=== PATIENT | female | born 1985 | race Caucasian/White ===

== ENCOUNTER → 2016-05-17 | Outpatient (CLI) | payer OTHER | END | disposition home or self-care (01) | LOC: LABWHC1 14:28 | PROVIDERS: ATTEND Obstetrics & Gynecology | DX: O20.9 Hemorrhage in early pregnancy, unspecified (principal); Z3A.00 Weeks of gestation of pregnancy not specified | CPT/HCPCS: 36415; 84702 ==

== ENCOUNTER → 2016-08-20 | Outpatient (CLI) | payer OTHER | END | disposition home or self-care (01) | LOC: LABWHC1 15:10 | PROVIDERS: ATTEND Obstetrics & Gynecology | DX: Z34.81 Encounter for supervision of other normal pregnancy, first trimester (principal); Z3A.00 Weeks of gestation of pregnancy not specified | CPT/HCPCS: 36415; 84702 ==

== ENCOUNTER → 2016-08-23 | Outpatient (CLI) | payer OTHER | END | disposition home or self-care (01) | LOC: LABWHC1 11:58 | PROVIDERS: ATTEND Obstetrics & Gynecology | DX: Z34.91 Encounter for supervision of normal pregnancy, unspecified, first trimester (principal) | CPT/HCPCS: 36415; 84702 ==

== ENCOUNTER → 2016-09-15 | Outpatient (CLI) | payer OTHER | END | disposition home or self-care (01) | LOC: LABWHC1 12:26 | PROVIDERS: ATTEND Obstetrics & Gynecology | DX: O03.9 Complete or unspecified spontaneous abortion without complication (principal) | CPT/HCPCS: 36415; 84702 ==

== ENCOUNTER → 2016-09-15 | Outpatient (CLI) | payer OTHER ==
[2016-09-15 13:15] LABS: Basophils % (A) 1 %; CH 30.5; CHCM 34.3; Eosinophils # (A) 0.2 k/uL (0-0.7); Eosinophils % (A) 3 %; HCT 40.9 % (34.0-46.0); HDW 2.59; Luc # (Auto) 0.09; Luc % (Auto) 2; Lymphocytes # (A) 1.9 k/uL (1.0-4.8); Lymphocytes % (A) 34 %; MCH 30.6 pg (25.0-35.0); MCHC 34.2 g/dL (31.0-37.0); MCV 89.3 fL (80.0-100.0); Mean Platelet Volume 6.6; Monocytes # (A) 0.2 k/uL (0-1.0); Monocytes % (A) 4 %; Neutrophils # (A) 3.1 k/uL (1.3-7.7); Neutrophils % (A) 57 %; RBC 4.58 m/uL (3.80-5.40); WBC 5.5 k/uL (3.8-10.6); WBC (Perox) 5.39
[2016-09-15 14:39] LABS: Bilirubin, Delta 0.4 mg/dL (0.0-0.2); Total Bilirubin 0.7 mg/dL (0.2-1.3); Total Protein 8.3 g/dL (6.3-8.2)
[2016-09-17 11:17] LABS: HCV Qualitative Result DETECTED (Not detected)
== END | disposition home or self-care (01) ==
LOC: LABWHC1 12:28
PROVIDERS: ATTEND Physician Assistant
DX: B18.2 Chronic viral hepatitis C (principal)
CPT/HCPCS: 36415; 80076; 84702; 85025; 87522; 87902

== ENCOUNTER 2017-08-11 06:00 | Inpatient (IN) | payer OTHER ==
[2017-08-11] MEDS ORDERED: OXYTOCIN 20 UNITS/1000 ML NS 1,000 ML IV SCH (07:30)
[2017-08-11] MEDS ORDERED: TERBUTALINE 1 MG/ML VIAL SQ PRN (07:30)
[2017-08-11] MEDS ORDERED: AMPICILLIN 2,000 MG in SODIUM CHLORIDE 0.9% 100 ML IVPB STA (07:30)
[2017-08-11] MEDS ORDERED: LIDOCAINE 1% (PF) 10 MG/ML (30 ML SDV) SQ PRN (07:30)
[2017-08-11] MEDS ORDERED: OXYTOCIN 10 UNIT/ML 1 ML VIAL IM PRN (07:30)
[2017-08-11] MEDS ORDERED: CARBOPROST TROMETHAMINE 250 MCG/ML 1 ML AMP IM PRN (07:30)
[2017-08-11] MEDS ORDERED: METHYLERGONOVINE 0.2 MG/ML 1 ML AMP IM PRN (07:30)
[2017-08-11 07:41] VITALS: BMI 35.3
[2017-08-11] MEDS: LACTATED RINGERS 1,000 ML IV SCH ×3 (08:04→21:01)
[2017-08-11 08:18] LABS: Basophils % (A) 0 %; Eosinophils # (A) 0.1 k/uL (0-0.7); Eosinophils % (A) 1 %; HCT 35.3 % (34.0-46.0); HGB 12.1 gm/dL (11.4-16.0); Lymphocytes # (A) 1.7 k/uL (1.0-4.8); Lymphocytes % (A) 22 %; MCH 30.2 pg (25.0-35.0); MCHC 34.3 g/dL (31.0-37.0); Mean Platelet Volume 7.2; Monocytes # (A) 0.4 k/uL (0-1.0); Monocytes % (A) 5 %; Neutrophils # (A) 5.5 k/uL (1.3-7.7); Neutrophils % (A) 71 %; Platelet Count 217 k/uL (150-450); RBC 4.02 m/uL (3.80-5.40); WBC 7.7 k/uL (3.8-10.6)
--- NOTE | 2017-08-11 09:32 | P.HPOB ---
History of Present Illness H&P Date: 08/11/17 Chief Complaint: Intrauterine at term: History of hepatitis C Dia is a 31-year-old at 39 weeks gestation who arrives for induction of labor. Her Precis course has been unremarkable although it is noted that she has a history of hepatitis C. She does see [facility] neurologist for this but has not taken medication for this in quite some time. When we did check her liver enzymes were normal we'll repeat the lab work today. Otherwise she is feeling well heart tones are in the 140s and reactiive. Past Medical History Additional Past Medical History / Comment(s): Hep C and a VSD History of Any Multi-Drug Resistant Organisms: None Reported Past Surgical History: Appendectomy, Tonsillectomy Past Anesthesia/Blood Transfusion Reactions: No Reported Reaction Past Psychological History: Depression Smoking Status: Former smoker Past Alcohol Use History: None Reported Past Drug Use History: None Reported Additional Drug Use History / Comment(s): history of drug use 10 years ago - Past Family History Mother Family Medical History: Asthma Medications and Allergies Home Medications Medication Instructions Recorded Confirmed Type Pnv 11/Iron Fum/Folic Acid/Om3 1 tab PO DAILY 08/11/17 08/11/17 History [Virt-Anjel Dha Softgel] Ranitidine HCl 150 mg PO HS 08/11/17 08/11/17 History Allergies Allergy/AdvReac Type Severity Reaction Status Date / Time latex Allergy Rash/Hives Verified 08/11/17 07:28 Exam Osteopathic Statement: *. No significant issues noted on an osteopathic structural exam other than those noted in the History and Physical/Consult. - Vital Signs Vital signs: Vital Signs Temp Pulse Resp BP Pulse Ox 08/11/17 07:27 97.5 F L 93 16 123/71 98 Intake and Output 08/10/17 08/11/17 08/11/17 22:59 06:59 14:59 Other: Weight 84.822 kg - OBG Physical Exam Breast: both: normal (no masses) Abdomen: bowel sounds normal, no diffuse tenderness, no bruit present, no guarding noted, no hepatomegaly, no splenomegaly, no mass Vulva: both: normal Vagina: normal moisture, no discharge Cervix: no lesion, no discharge Uterus: Dilated to 1 cm 70% effaced -3 station. Cervix is posterior. Artificial rupture membranes was performed and clear fluid is noted. Uterus: normal size, normal contour Adnexa: both: normal Anus/Rectum: normal perianal skin, no rectal mass, no hemorrhoids, heme negative Results Result Diagrams: 08/11/17 08:04 Assessment and Plan Assessment: Intrauterine at 39 weeks. History of hepatitis C Plan: Expect spontaneous vaginal delivery with expectation for epidural for analgesia.
[2017-08-11 09:48] LABS: ALT 28 U/L (9-52); AST 28 U/L (14-36)
[2017-08-11] MEDS: AMPICILLIN 1,000 MG in SODIUM CHLORIDE 0.9% 50 ML IVPB SCH ×3 (11:58→21:21)
[2017-08-11] MEDS ORDERED: BUPIVACAINE (PF) 0.25% 30 ML VIAL ONE (16:18)
[2017-08-11] MEDS ORDERED: fentaNYL (PF) 50 MCG/ML 5 ML AMP ONE (16:18)
[2017-08-11] MEDS ORDERED: SODIUM CHLORIDE 0.9% 100 ML BAG ONE (16:18)
[2017-08-11] MEDS ORDERED: BUPIVACAINE (PF) 0.25% 25 ML, fentaNYL (PF) 200 MCG in SODIUM CHLORIDE 0.9% 71 ML EPIDURAL ONE (20:18)
[2017-08-11] MEDS ORDERED: ZOLPIDEM 5 MG TAB PO PRN (20:19)
[2017-08-11] MEDS ORDERED: SIMETHICONE 80 MG CHEWABLE PO PRN (20:19)
[2017-08-11] MEDS ORDERED: WITCH HAZEL 1 EACH MED..PAD TOPICAL PRN (20:19)
[2017-08-11] MEDS ORDERED: BENZOCAINE/MENTHOL SPRAY 1 GM/SPRAY AEROSOL TOPICAL PRN (20:19)
[2017-08-11] MEDS ORDERED: LANOLIN CREAM 5 GM TUBE TOPICAL PRN (20:19)
[2017-08-11] MEDS ORDERED: ACETAMINOPHEN TAB 325 MG TAB PO PRN (20:19)
[2017-08-11] MEDS ORDERED: diphenhydrAMINE 25 MG CAP PO PRN (20:19)
[2017-08-11] MEDS ORDERED: HYDROCORTISONE 2.5% RECTAL CREAM 30 GM TUBE RECTAL PRN (20:19)
[2017-08-11] MEDS ORDERED: diphenhydrAMINE 50 MG/ML 1 ML VIAL IVP PRN ×2 (20:19)
[2017-08-11] MEDS ORDERED: diphenhydrAMINE 50 MG CAP PO PRN (20:19)
--- NOTE | 2017-08-11 20:21 | P.PROBDLV ---
Vaginal Delivery Note - . Vaginal Delivery Note: Patient progressed to complete and pushed with spontaneous vaginal delivery of a viable male over an intact perineum. Falling deliver the head nuchal cord 1 was noted and easily reduced. Anterior shoulder was then delivered gentle downward traction followed by upper traction to deliver the posterior shoulder and the remainder the baby. Baby's mouth nares were then bulb suctioned and baby was placed on mother's abdomen where the umbilical cord was clamped and cut in usual fashion. Placenta was then delivered intact and Pitocin was added to the IV. Nursery personnel was present to assume care. scores were 8 and 9 at one and 5 minutes respectively and weight was 8 lbs. 1 oz. Both mother and baby are stable following delivery.
[2017-08-12] MEDS: IBUPROFEN 600 MG TAB PO PRN ×3 (02:24→14:39)
[2017-08-12] MEDS: SENNOSIDES-DOCUSATE SODIUM 1 EACH TAB PO SCH ×2 (08:03→19:56)
--- NOTE | 2017-08-12 12:58 | P.PNOBGVD ---
Subjective - Subjective Principal diagnosis: day 1 Interval history: Doing very well and voicing no complaints. Patient reports: Reports appetite normal, Reports voiding normally, Reports pain well controlled, Reports ambulating normally : doing well Objective - Latest Vital Signs Latest vital signs: Vital Signs Temp Pulse Resp BP Pulse Ox 08/12/17 08:00 98.2 F 83 16 105/75 08/12/17 04:00 98.4 F 85 16 111/63 96 08/12/17 00:00 98.2 F 94 16 114/63 100 08/11/17 22:24 98.5 F 91 16 106/56 96 08/11/17 21:54 99.2 F 88 16 103/55 08/11/17 21:24 16 08/11/17 21:21 97.4 F L 99 18 115/58 98 08/11/17 21:08 98.9 F 93 18 100/68 98 08/11/17 20:54 97.9 F 94 18 102/64 98 08/11/17 20:38 99.2 F 18 121/60 97 08/11/17 20:24 99.2 F 116 H 18 141/88 Intake and Output 08/11/17 08/12/17 08/12/17 22:59 06:59 14:59 Intake Total 1200 1000 Output Total 400 Balance 800 1000 Intake: IV 1200 Intake, IV Titration 1000 Amount Oxytocin 20 Units/1000 ml 1000 Ns 1,000 ml @ 1 MILLIUNIT/MIN 3 mls/hr IV .Q24H SHANIQUE Rx#:[id number] Output: Urine 400 Straight 400 Other: Voiding Method Toilet # Voids 1 1 1 - Exam Lungs: bilateral: normal Chest: Normal S1, Normal S2 Extremities: Present: normal Abdomen: Present: normal appearance, soft Uterus: Present: normal, firm
[2017-08-12] MEDS: LACTATED RINGERS 1,000 ML IV SCH ×2 (13:52→15:35)
[2017-08-13 00:30] VITALS: TEMP 97.9
--- NOTE | 2017-08-13 10:55 | P.DS ---
Providers Date of admission: 08/11/17 07:11 Expected date of discharge: 08/13/17 Attending physician: Darvin Hemphill Primary care physician: Crystal Altman - Discharge Diagnosis(es) (1) Normal vaginal delivery Current Visit: Yes Status: Acute Hospital Course: Patient presented for induction of labor. She underwent normal vaginal delivery. Her course was uncomplicated. She denies nausea, vomiting , chest pain, shortness of breath or calf pain. She'll be discharged home day #2 in stable condition to follow-up with Dr. Hemphill in 6 weeks. Plan - Discharge Summary New Discharge Prescriptions: New Ibuprofen [Motrin] 600 mg PO Q6HR PRN #30 tab PRN Reason: Pain No Action Ranitidine HCl 150 mg PO HS Pnv 11/Iron Fum/Folic Acid/Om3 [Virt-Anjel Dha Softgel] 1 tab PO DAILY Discharge Medication List Pnv 11/Iron Fum/Folic Acid/Om3 [Virt-Anjel Dha Softgel] 1 tab PO DAILY 08/11/17 [ History] Ranitidine HCl 150 mg PO HS 08/11/17 [History] Ibuprofen [Motrin] 600 mg PO Q6HR PRN #30 tab 08/12/17 [Rx] Follow up Appointment(s)/Referral(s): Darvin Hemphill DO [Doctor of Osteopathic Medicine] - 6 Weeks Activity/Diet/Wound Care/Special Instructions: No heavy lifting, limit stairs and driving, and pelvic rest. If any high temperatures, heavy bleeding, or severe pain call my office Discharge Disposition: HOME SELF-CARE
[2017-08-13 11:08] VITALS: BP 121/71; PULSE 94; RESP 18
--- NOTE | 2017-08-30 19:58 | CDI ---
Documentation Clarification Form Date: 08/30/17 From: Rowena Castillo Admit Date: 08/11/2017 7:11:00 AM Patient Name: Dia Rice Visit Number: [id number] Discharge Date: 08/13/17 ATTENTION: The Clinical Documentation Specialists (CDI) and [facility] Coding Staff appreciate your assistance in clarifying documentation. Please respond to the clarification below the line at the bottom and electronically sign. The CDI & [facility] Coding staff will review the response and follow-up if needed. Please note: Queries are made part of the Legal Health Record. If you have any questions, please contact the author of this message via ITS. Dr. Darvin Hemphill Group B strep is documented in the EMR Patient history/risk factors: Pt is pregnent Treatment: patient was given Ampicillin IV Clinical significance of diagnostic testing and treatment cannot be assumed or coded without physician documentation of the significance, if any. Signs or symptoms of an underlying condition should be coded only if not definite diagnosis is determined. In your professional opinion, can you please clarify the underlying cause of the patients symptoms, if known? Group B strep positive Other, please specify Unable to determine gbs positive MTDD
== END 2017-08-13 12:52 | disposition home or self-care (01) | DRG 774 ==
LOC: 4FBP 07:11
PROVIDERS: ADMIT Obstetrics & Gynecology; ATTEND Obstetrics & Gynecology
PROC: 00HU33Z Insertion of Infusion Device into Spinal Canal, Percutaneous Approach (ICD-10-PCS; principal; 2017-08-11)
PROC: 10E0XZZ Delivery of Products of Conception, External Approach (ICD-10-PCS; 2017-08-11)
PROC: 3E0R3NZ Introduction of Analgesics, Hypnotics, Sedatives into Spinal Canal, Percutaneous Approach (ICD-10-PCS; 2017-08-11)
PROC: 10907ZC Drainage of Amniotic Fluid, Therapeutic from Products of Conception, Via Natural or Artificial Opening (ICD-10-PCS; 2017-08-11)
PROC: 3E033VJ Introduction of Other Hormone into Peripheral Vein, Percutaneous Approach (ICD-10-PCS; 2017-08-11)
DX: O98.419 Viral hepatitis complicating pregnancy, unspecified trimester (principal); B19.20 Unspecified viral hepatitis C without hepatic coma; O99.824 Streptococcus B carrier state complicating childbirth; O69.81X0 Labor and delivery complicated by cord around neck, without compression, not applicable or unspecified; Z3A.39 39 weeks gestation of pregnancy; Z90.49 Acquired absence of other specified parts of digestive tract; Z90.89 Acquired absence of other organs; Z87.891 Personal history of nicotine dependence; Z82.5 Family history of asthma and other chronic lower respiratory diseases; Z79.899 Other long term (current) drug therapy; Z37.0 Single live birth; Z86.59 Personal history of other mental and behavioral disorders; Z91.040 Latex allergy status
CPT/HCPCS: 84450; 84460; 85025; 88307

== ENCOUNTER → 2018-07-07 | Outpatient (CLI) | payer OTHER ==
--- NOTE | 2018-07-07 20:05 | MR ---
MR brain without contrast HISTORY: Migraine headache Multiplanar multisequence imaging through the brain There is no restricted diffusion. Brain signal is normal. There is no hemorrhage or hydrocephalus. Th ere are normal vascular flow voids. Mild inflammatory change present in the ethmoid air cells, maxill amita sinuses. The corpus callosum, pituitary, cervical medullary junction, cerebellopontine angles are normal. Orbits show symmetric appearance. IMPRESSION: Mild sinus disease.
== END ==
LOC: RADMRIMAIN 19:30
PROVIDERS: ATTEND Psychiatry & Neurology Neurology
DX: G43.109 Migraine with aura, not intractable, without status migrainosus (principal)
CPT/HCPCS: 70551

== ENCOUNTER 2019-12-12 17:06 | Emergency (ER) | payer OTHER ==
[2019-12-12] MEDS ORDERED: LIDOCAINE 1% INJ 10MG/ML (20 ML MDV) SQ ONE (17:41)
[2019-12-12] MEDS ORDERED: HYDROcodone/APAP 5-325MG 1 EACH TAB PO STA (17:41)
[2019-12-12] MEDS ORDERED: LIDOCAINE/EPINEPHR/TETRACAINE 5 ML BOTTLE TOPICAL STA (18:14)
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
--- NOTE | 2019-12-12 18:21 | XR ---
EXAMINATION TYPE: XR nasal bone DATE OF EXAM: 12/12/2019 COMPARISON: NONE HISTORY: Trauma TECHNIQUE: 3 views FINDINGS: There is fracture of the anterior tip of the nasal bone. There is 2 mm depression. There is normal aeration of the maxillary sinuses. There is no evidence of a blowout fracture. IMPRESSION: Anterior nasal bone fracture.
--- NOTE | 2019-12-12 18:47 | XR ---
EXAMINATION TYPE: XR wrist complete RT DATE OF EXAM: 12/12/2019 COMPARISON: 06/29/2010 HISTORY: Pain TECHNIQUE: 4 views FINDINGS: Carpal bones appear intact. I see no fracture nor dislocation. Metacarpals are intact. Ther e is slight widening of the scapholunate joint space. IMPRESSION: Slight widening of the scapholunate joint space could relate to some ligamentous tear and is unchanged compared to old exam. No acute bony abnormality.
--- NOTE | 2019-12-12 18:49 | XR ---
EXAMINATION TYPE: XR hand complete RT DATE OF EXAM: 12/12/2019 COMPARISON: NONE HISTORY: Pain TECHNIQUE: 3 views FINDINGS: Metacarpals are intact. I see no fracture nor dislocation. Joint spaces are normal. There a re no erosions. There is no subluxation. IMPRESSION: Negative exam. No evidence of inflammatory arthritis.
[2019-12-12] MEDS ORDERED: CEPHALEXIN 500MG STARTER PACK 4 CAP BTL PO STA (19:08)
[2019-12-12] MEDS ORDERED: AMOXIC-POT CLAV 875MG STARTER PACK 2 TAB BTL PO STA (19:18)
[2019-12-12 19:31] VITALS: BP 129/89; PULSE 80; RESP 16; TEMP 97.9
== END 2019-12-12 19:31 | disposition home or self-care (01) ==
LOC: EC 17:06
DX: S02.2XXA Fracture of nasal bones, initial encounter for closed fracture (principal); S01.21XA Laceration without foreign body of nose, initial encounter; Z79.899 Other long term (current) drug therapy; Z87.891 Personal history of nicotine dependence; Z91.040 Latex allergy status; Y04.0XXA Assault by unarmed brawl or fight, initial encounter
CPT/HCPCS: 70160; 73110; 73130; 99284; 12011; J2001

== ENCOUNTER 2022-04-24 02:29 | Inpatient (IN) | payer OTHER ==
[2022-04-24] MEDS ORDERED: LIDOCAINE 0.5% (PF) 5 MG/ML (50 ML SDV) SQ PRN (03:49)
[2022-04-24] MEDS ORDERED: TERBUTALINE 1 MG/ML VIAL SQ PRN (03:49)
[2022-04-24] MEDS ORDERED: AMPICILLIN 2,000 MG in SODIUM CHLORIDE 0.9% 100 ML IVPB STA (03:49)
[2022-04-24] MEDS ORDERED: LACTATED RINGERS 1,000 ML IV SCH (04:00)
[2022-04-24] MEDS ORDERED: OXYTOCIN 30 UNITS/500 ML NS 30 UNIT in SALINE 1 500ML.BAG IV SCH ×2 (04:00→06:30)
[2022-04-24 04:48] LABS: Basophils # (A) 0.1 k/uL (0-0.2); Basophils % (A) 0 %; Eosinophils # (A) 0.1 k/uL (0-0.7); Eosinophils % (A) 1 %; HCT 39.3 % (34.0-46.0); HGB 13.5 gm/dL (11.4-16.0); Lymphocytes # (A) 1.8 k/uL (1.0-4.8); Lymphocytes % (A) 16 %; MCH 29.3 pg (25.0-35.0); MCHC 34.4 g/dL (31.0-37.0); MCV 85.2 fL (80.0-100.0); Monocytes # (A) 0.4 k/uL (0-1.0); Monocytes % (A) 4 %; Neutrophils # (A) 8.8 k/uL (1.3-7.7); Neutrophils % (A) 77 %; Platelet Count 235 k/uL (150-450); RBC 4.61 m/uL (3.80-5.40); RDW 14.4 % (11.5-15.5); WBC 11.5 k/uL (3.8-10.6)
[2022-04-24 04:58] LABS: Appearance,Urine Clear (Clear); Bacteria,Urine Rare /hpf; Bilirubin,Urine Negative (Negative); Blood,Urine Negative (Negative); Color,Urine Yellow; Creatinine,Urine Random 86.6 mg/dL; Glucose,Urine (UA) Negative (Negative); Hyaline Casts,Urine 1 /lpf (0-2); Ketones,Urine 2+ (Negative); Leukocyte Esterase,Urine Small (Negative); Mucus,Urine Rare /hpf; Nitrite,Urine Negative (Negative); Protein,Urine Trace (Negative); Protein/Creatinine Ratio,Urine 0.115; RBC,Urine <1 /hpf (0-5); Specific Gravity,Urine 1.023 (1.001-1.035); Squamous Epithelial Cell,Urine 3 /hpf (0-4); Urobilinogen,Urine <2.0 mg/dL (<2.0); WBC,Urine 2 /hpf (0-5)
[2022-04-24 05:00] LABS: ALT 44 U/L (4-34); AST 83 U/L (14-36); African American GFR (CKD) >90 (>60 ml/min/1.73 sqM); Blood Urea Nitrogen 20 mg/dL (7-17); Glucose 93 mg/dL (74-99); LDH 541 U/L (313-618); Non-African American GFR(CKD) 86 (>60 ml/min/1.73 sqM); Uric Acid 5.6 mg/dL (3.7-7.4)
[2022-04-24 05:02] LABS: Amphetamine Screen,Urine Detected (NotDetected); Barbiturate Screen,Urine Not Detected (NotDetected); Benzodiazepines Screen,Urine Not Detected (NotDetected); Cocaine Screen,Urine Not Detected (NotDetected); Methadone Screen, Urine Not Detected (NotDetected); Opiate Screen,Urine Not Detected (NotDetected); Oxycodone Screen, Urine Not Detected (NotDetected); Phencyclidine Screen,Urine Not Detected (NotDetected); Tricyclic Antidepressant,Urine Not Detected (NotDetected); Urn Cannabinoid Scrn Detected (NotDetected)
[2022-04-24] MEDS ORDERED: SODIUM CHLORIDE 0.9% 100 ML BAG ONE (05:05)
[2022-04-24] MEDS ORDERED: BUPIVACAINE (PF) 0.25% 30 ML VIAL ONE (05:05)
[2022-04-24] MEDS ORDERED: fentaNYL (PF) 50 MCG/ML 5 ML AMP ONE (05:05)
--- NOTE | 2022-04-24 05:14 | P.HPOB ---
History of Present Illness H&P Date: 04/24/22 Chief Complaint: LAbor 36 year old presents at 39 weeks 3 days plan he of contractions. Her cervix was 1-2 cm dilated, 70% effaced, -2 stationand she changed to 2-1/2 cm dilated in triage. heart tones were 135 with moderate variability and reactive. She is levy every 2-4 minutes. Patient has had all of her care in [facility]. I do not have records from this though the patient states that the ultrasound was normal. patient herself has a history of a ventricular septal defect that resolved on its own. Review of Systems All systems: negative Constitutional: Denies chills, Denies fever Eyes: denies blurred vision, denies pain Ears, nose, mouth and throat: Denies headache, Denies sore throat Cardiovascular: Denies chest pain, Denies shortness of breath Respiratory: Denies cough Gastrointestinal: Denies abdominal pain, Denies diarrhea, Denies nausea, Denies vomiting Genitourinary: Denies dysuria, Denies hematuria Musculoskeletal: Denies myalgias Integumentary: Denies pruritus, Denies rash Neurological: Denies numbness, Denies weakness Psychiatric: Denies anxiety, Denies depression Endocrine: Denies fatigue, Denies weight change Past Medical History Additional Past Medical History / Comment(s): Hep C and a VSD closed by the time she was 13 years old, she still has a murmur.she states she's had 3 previous vaginal deliveries History of Any Multi-Drug Resistant Organisms: None Reported Past Surgical History: Tonsillectomy Past Anesthesia/Blood Transfusion Reactions: No Reported Reaction Past Psychological History: Depression Smoking Status: Current every day smoker Past Alcohol Use History: None Reported Past Drug Use History: Marijuana Additional Drug Use History / Comment(s): history of drug use 10 years ago - Past Family History Mother Family Medical History: Asthma Medications and Allergies Home Medications Medication Instructions Recorded Confirmed Type Pnv 11/Iron Fum/Folic Acid/Om3 1 tab PO DAILY 08/11/17 04/24/22 History [Virt-Anjel Dha Softgel] Allergies Allergy/AdvReac Type Severity Reaction Status Date / Time latex Allergy Rash/Hives Verified 08/11/17 07:28 Exam Osteopathic Statement: *. No significant issues noted on an osteopathic structural exam other than those noted in the History and Physical/Consult. Vital Signs Temp Pulse Resp BP Pulse Ox 04/24/22 04:01 97.1 F L 100 16 143/97 100 Intake and Output 04/23/22 04/23/22 04/24/22 14:59 22:59 06:59 Other: Weight 77.111 kg Heart: Regular rate and rhythm Lungs: Clear to auscultation bilaterally Abdomen: Soft, nontender Extremities: Negative Homans sign, there are spots where the patient has been picking at her skin over her arms and legs. Results Result Diagrams: 04/24/22 04:30 04/24/22 04:30 Abnormal Lab Results - Last 24 Hours (Table) 04/24/22 04/24/22 04/24/22 Range/Units 04:30 04:30 04:37 WBC 11.5 H (3.8-10.6) k/uL Neutrophils # 8.8 H (1.3-7.7) k/uL BUN 20 H (7-17) mg/dL AST 83 H (14-36) U/L ALT 44 H (4-34) U/L Urine Protein Trace H (Negative) Urine Ketones 2+ H (Negative) Ur Leukocyte Esterase Small H (Negative) Urine Bacteria Rare H (None) /hpf Urine Mucus Rare H (None) /hpf Ur Amphetamines Screen Detected H (NotDetected) U Methamphetamines Scrn Detected H (NotDetected) U Marijuana (THC) Screen Detected H (NotDetected) Assessment and Plan (1) 39 weeks gestation of Current Visit: Yes Status: Acute Code(s): Z3A.39 - 39 WEEKS GESTATION OF SNOMED Code(s): 68112329 (2) Limited care, antepartum Current Visit: Yes Status: Acute Code(s): O09.30 - SUPRVSN OF PREG W INSUFFICIENT ANTENAT CARE, UNSP TRIMESTER SNOMED Code(s): 509589202 (3) Normal labor Current Visit: Yes Status: Acute Code(s): O80 - ENCOUNTER FOR FULL-TERM UNCOMPLICATED DELIVERY; Z37.9 - OUTCOME OF DELIVERY, UNSPECIFIED SNOMED Code(s): 34724291 Plan: 1. Admit to family place 2. Expectant management 3. Anticipate normal vaginal delivery
[2022-04-24] MEDS ORDERED: ZOLPIDEM 5 MG TAB PO PRN (06:25)
[2022-04-24] MEDS ORDERED: HYDROCORTISONE 2.5% RECTAL CREAM 30 GM TUBE RECTAL PRN (06:25)
[2022-04-24] MEDS ORDERED: diphenhydrAMINE 50 MG CAP PO PRN (06:25)
[2022-04-24] MEDS ORDERED: BENZOCAINE/MENTHOL SPRAY 1 GM/SPRAY AEROSOL TOPICAL PRN (06:25)
[2022-04-24] MEDS ORDERED: diphenhydrAMINE 25 MG CAP PO PRN (06:25)
[2022-04-24] MEDS ORDERED: ACETAMINOPHEN TAB 325 MG TAB PO PRN (06:25)
[2022-04-24] MEDS ORDERED: SIMETHICONE 80 MG CHEWABLE PO PRN (06:25)
[2022-04-24] MEDS ORDERED: diphenhydrAMINE 50 MG/ML 1 ML VIAL IVP PRN ×2 (06:25)
[2022-04-24] MEDS ORDERED: LANOLIN CREAM 5 GM TUBE TOPICAL PRN (06:25)
--- NOTE | 2022-04-24 06:25 | P.PROBDLV ---
Vaginal Delivery Note - . Vaginal Delivery Note: 36 year old presents at 39 weeks 3 days complaining of contractions. Her cervix was 1-2 cm dilated, 70% effaced, -2 station and she changed to 2-1/2 cm dilated in triage. heart tones were 135 with moderate variability and reactive. She is levy every 2-4 minutes. patient is admitted to [facility] and after IV Allis was given and CBC was obtained, patient did receive an epidural. Soon after that her water spontaneously broke and she had meconium-stained fluid. Her cervix was completely dilated at 5:55 AM, she pushed, and delivered a viable male infant over intact perineum under epidural anesthesia at 6:09 AM. Head delivered OA, nuchal cord 2 easily reduced, anterior shoulder delivered gentle downward guidance followed by posterior shoulder and rest of body. Nose and mouth bulb suctioned, cord clamped and cut, placed mother's abdomen. Apgars 9, 9, weight 8 pounds 0.6 ounces. Placenta delivered spontaneously, intact with three-vessel cord at 6:11 AM. Vagina, cervix, perineum inspected. No lacerations noted. Estimated blood loss 100 mL. Mother and baby in stable condition.
[2022-04-24] MEDS ORDERED: AMPICILLIN 1,000 MG in SODIUM CHLORIDE 0.9% 50 ML IVPB SCH (08:00)
[2022-04-24] MEDS: SENNOSIDES-DOCUSATE SODIUM 1 EACH TAB PO SCH ×2 (08:41→23:08)
[2022-04-24 13:05] LABS: Hepatitis B Surface Antigen Nonreactive (Nonreactive)
[2022-04-24] MEDS: IBUPROFEN 600 MG TAB PO PRN (19:34)
[2022-04-25] MEDS: IBUPROFEN 600 MG TAB PO PRN ×2 (02:24→10:32)
[2022-04-25 06:50] LABS: Basophils % (A) 1 %; Eosinophils # (A) 0.2 k/uL (0-0.7); Eosinophils % (A) 3 %; HCT 32.3 % (34.0-46.0); HGB 11.1 gm/dL (11.4-16.0); Lymphocytes # (A) 1.9 k/uL (1.0-4.8); Lymphocytes % (A) 24 %; MCHC 34.4 g/dL (31.0-37.0); MCV 87.1 fL (80.0-100.0); Mean Platelet Volume 8.7; Monocytes # (A) 0.3 k/uL (0-1.0); Monocytes % (A) 4 %; Neutrophils # (A) 5.4 k/uL (1.3-7.7); Neutrophils % (A) 68 %; Platelet Count 207 k/uL (150-450); RBC 3.71 m/uL (3.80-5.40); RDW 14.5 % (11.5-15.5)
[2022-04-25 07:55] VITALS: RESP 16
--- NOTE | 2022-04-25 09:03 | P.PNOBGVD ---
Subjective - Subjective Principal diagnosis: Status post normal vaginal delivery day #1 Interval history: Patient seen and examined. Denies nausea, vomiting, chest pain, sugars of breath or any calf pain. She is complaining of some cramping and passed some blood clots last night. Patient reports: Reports appetite normal, Reports voiding normally, Reports pain well controlled, Reports ambulating normally Jewell: doing well Objective - Latest Vital Signs Latest vital signs: Vital Signs Temp Pulse Resp BP Pulse Ox 04/25/22 07:52 97.4 F L 103 H 16 128/83 04/25/22 04:00 98.0 F 95 14 152/90 97 04/24/22 23:42 97 15 04/24/22 23:41 98.2 F 97 15 151/81 97 04/24/22 15:35 98.1 F 103 H 17 134/90 04/24/22 11:25 98.2 F 110 H 16 141/73 Intake and Output 04/24/22 04/25/22 04/25/22 22:59 06:59 14:59 Intake Total 480 Balance 480 Intake: Oral 480 - Exam Lungs: bilateral: normal Chest: Normal S1, Normal S2 Extremities: Present: normal Abdomen: Present: normal appearance, soft Uterus: Present: normal, firm - Labs Labs: Abnormal Lab Results - Last 24 Hours (Table) 04/24/22 04/25/22 Range/Units 04:30 06:31 RBC 3.71 L (3.80-5.40) m/uL Hgb 11.1 L (11.4-16.0) gm/dL Hct 32.3 L (34.0-46.0) % Rubella IgG Antibody 140.00 H (0.00-10.00) IU/mL Assessment and Plan (1) 39 weeks gestation of Current Visit: Yes Status: Resolved Code(s): Z3A.39 - 39 WEEKS GESTATION OF SNOMED Code(s): 33292024 (2) Limited care, antepartum Current Visit: Yes Status: Resolved Code(s): O09.30 - SUPRVSN OF PREG W INSUFFICIENT ANTENAT CARE, UNSP TRIMESTER SNOMED Code(s): 394042451 (3) Normal labor Current Visit: Yes Status: Resolved Code(s): O80 - ENCOUNTER FOR FULL-TERM UNCOMPLICATED DELIVERY; Z37.9 - OUTCOME OF DELIVERY, UNSPECIFIED SNOMED Code(s): 64491496 (4) Status post normal vaginal delivery Current Visit: Yes Status: Acute Code(s): ELE3294 - SNOMED Code(s): 486169192 Plan: 1. Continue care
[2022-04-25 15:33] VITALS: BP 150/90; PULSE 86; TEMP 97.8
[2022-04-25] MEDS: SENNOSIDES-DOCUSATE SODIUM 1 EACH TAB PO SCH (15:37)
--- NOTE | 2022-04-25 17:52 | P.DS ---
Providers Date of admission: 04/24/22 03:46 Expected date of discharge: 04/25/22 Attending physician: Nithya Leger Primary care physician: Stated None - Discharge Diagnosis(es) (1) 39 weeks gestation of Status: Resolved (2) Limited care, antepartum Status: Resolved (3) Normal labor Status: Resolved (4) Status post normal vaginal delivery Status: Acute Hospital Course: Patient had initially wanted to stay in the hospital today. She changed her mind and would like to be discharged home. She denies nausea, vomiting, chest pain, shortness of breath or any calf pain. Her cramping is improved and her bleeding is slowed. Patient will be discharged home and since she does not have a physician she can follow-up with me in 6 weeks. Patient Condition at Discharge: Stable Plan - Discharge Summary New Discharge Prescriptions: No Action RX: Pnv 11/Iron Fum/Folic Acid/Om3 [Virt-Anjel Dha Softgel] 1 tab PO DAILY Discharge Medication List RX: Pnv 11/Iron Fum/Folic Acid/Om3 [Virt-Anjel Dha Softgel] 1 tab PO DAILY 08/11/17 [History] Follow up Appointment(s)/Referral(s): Nithya Leger DO [Doctor of Osteopathic Medicine] - 6 Weeks Discharge Disposition: HOME SELF-CARE
[2022-04-26 12:49] LABS: C. trachomatis,PCR Negative (Neg,Equiv); Chlamydia trachomatis Source Urine; N. gonorrhoeae,PCR Negative (Neg,Equiv); Neisseria Source Urine
[2022-04-26 13:43] LABS: HIV 2 AB Non-Reactive (Non-Reactive); HIV AB P24 Non-Reactive (Non-Reactive); HIV P24 AG Non-Reactive (Non-Reactive)
== END 2022-04-25 16:50 | disposition home or self-care (01) | DRG 806 ==
LOC: FBPOP 02:29 → 4FBP 03:46
PROVIDERS: ADMIT Obstetrics & Gynecology; ATTEND Obstetrics & Gynecology
PROC: 10E0XZZ Delivery of Products of Conception, External Approach (ICD-10-PCS; principal; 2022-04-24)
DX: O77.0 Labor and delivery complicated by meconium in amniotic fluid (principal); O98.42 Viral hepatitis complicating childbirth; O69.81X0 Labor and delivery complicated by cord around neck, without compression, not applicable or unspecified; B19.20 Unspecified viral hepatitis C without hepatic coma; O99.344 Other mental disorders complicating childbirth; F32.A Depression, unspecified; O99.334 Smoking (tobacco) complicating childbirth; F17.200 Nicotine dependence, unspecified, uncomplicated; Z87.74 Personal history of (corrected) congenital malformations of heart and circulatory system; Z91.040 Latex allergy status; Z28.310 Unvaccinated for COVID-19; Z3A.39 39 weeks gestation of pregnancy; Z37.0 Single live birth
CPT/HCPCS: 36415; 59025; 80306; 81001; 82565; 82570; 82947; 83615; 84156; 84450; 84460; 84520; 84550; 85025; 86762; 86780; 86803; 86850; 86900; 86901; 87340; 87390; 87491; 87521; 87591; 88307; 99213